=== PATIENT | female | born 1990 | race Asian ===

== ENCOUNTER 2016-03-15 15:06 | Outpatient (CLI) | payer OTHER, MEDICAID | END 2016-03-15 15:07 | disposition home or self-care (01) | LOC: NC 15:06 | PROVIDERS: ATTEND Advanced Practice Midwife | DX: Z71.3 Dietary counseling and surveillance (principal); O24.410 Gestational diabetes mellitus in pregnancy, diet controlled; O99.210 Obesity complicating pregnancy, unspecified trimester ==

== ENCOUNTER 2016-03-22 15:06 | Outpatient (CLI) | payer OTHER, MEDICAID | END 2016-03-22 15:07 | disposition home or self-care (01) | LOC: NC 15:06 | PROVIDERS: ATTEND Obstetrics & Gynecology | DX: O24.410 Gestational diabetes mellitus in pregnancy, diet controlled (principal); Z71.3 Dietary counseling and surveillance; O99.210 Obesity complicating pregnancy, unspecified trimester; Z68.31 Body mass index [BMI] 31.0-31.9, adult; Z3A.00 Weeks of gestation of pregnancy not specified ==

== ENCOUNTER 2016-04-18 06:27 | Inpatient (IN) | payer OTHER, MEDICAID ==
[2016-04-19] MEDS ORDERED: PUMP TUBING ONE (09:25)
[2016-04-19] MEDS ORDERED: LIDOCAINE Viscous 2% 15 ML UDCUP ONE (09:25)
[2016-04-19] MEDS ORDERED: OXYTOCIN 10 UNITS/ML VIAL ONE (09:25)
[2016-04-19] MEDS ORDERED: MINERAL OIL 25 ML BOT ONE (09:25)
[2016-04-19] MEDS ORDERED: LACTATED RINGERS 1,000 ML ONE (09:25)
[2016-04-19] MEDS ORDERED: LIDOCAINE 1% (PRES FREE) 30 ML VIAL ONE (09:25)
[2016-04-19] MEDS ORDERED: IV START KIT ONE (09:25)
[2016-04-19] MEDS ORDERED: OXYTOCIN IN LR 500 ML IV ONE (09:26)
[2016-04-19] MEDS: MISOPROSTOL 25 MCG TABLET VG SCH ×2 (10:17→14:29)
[2016-04-19 10:24] LABS: HEMATOCRIT 35.8 % (37.0-47.0); HEMOGLOBIN 11.7 gm/l (12.0-16.0); MEAN CELL VOLUME 86.1 fl (81.0-99.0); MEAN CORPUSCULAR HEMOGLOBIN 28.1 pg (27.0-31.0); MEAN CORPUSCULAR HGB CONC 32.7 g/dl (33.0-37.0); RED CELL DISTRIBUTION WIDTH 14.1 % (11.5-14.5)
--- NOTE | 2016-04-19 10:29 | PDOC36 ---
Provider Note Subject: First dose of cytotec Note: FH cat 1 EFW 7.5lbs US confirms vertex presentation VE cvx soft, 50%, closed int os, vtx -3 loosely applied. Misoprostol 25mcg placed intra vaginally, after obtaining pt's verbal consent.
[2016-04-19 10:58] LABS: ALB/GLOB RATIO 1.2 (>1.0); ALBUMIN 3.4 gm/dL (3.5-5.7)
[2016-04-19 11:04] VITALS: BMI 32.5
--- NOTE | 2016-04-19 14:42 | PDOC36 ---
Provider Note Subject: Second dose Note: Pt has felt crampy but no serious pain. No bleeding or ROM. Exam FH cat 1, uterine irritability and occ longer contrx Tone of uterus is increased compared to before. VE cervix softer, 50%, posterior, floppy, loose 1cm vertex loosely applied at -3 station. Membranes intact. Good response to first dose of misoprostol. Second dose placed without difficulty.
--- NOTE | 2016-04-19 15:01 | PCMAN ---
OB Admission Note - History : 2 Term: 1 : 0 Abortions (S&E): 0 Livin EDC:: 04/25/16 Gestational Age (weeks): 39 Days (#/7): 1 Admit Cervical Dilation:: closed Admit Cervical Effacement (%):: 50 Admit Station:: -3 Admit Presentaton:: cephalic Membrane Status: Intact Contractions: No Contraction Frequency:: mild uterine irritability Heart Rate:: 135 (category 1) Status:: Good EFW:: 7.5 - 8 lbs Summary of Course:: Pt initially followed by [facility]. She was diagnosed with GDM, inadequately controlled with diet alone. She was started on glyburide finally on 03/27/16, 5mg PO BID and has had fastings around 70-80. Most pprandials are OK but higher with poor food choices. With last pt was induced at [address] Wheat. She had a NVbirth of a boy weighing 8lb11, Jose. This baby is another boy named Torey. The plan is induction at 39 weeks because of inadequate blood sugar control. - Labs Blood Type: B (+) positive Rubella Status: Non-immune GBS Status: Negative Abnormal Labs: None - Review of Systems Pt has had an URI infx for several days. No bleeding, no ROM. No nausea/emesis/fever/chills/diarrhea. - Physical Exam Psych/Mental Status: Mood/Affect Appropriate Lungs: Clear to Auscultation Bilaterally Cardiovascular: Regular Rate and Rhythm Abdomen: Normal Bowel Sounds Genitourinary: Normal Female Genitalia Extremities: Full ROM Skin: Normal Color, Warm, Dry - Problems (1) Gestational diabetes mellitus (GDM) affecting second Status: Acute Code: O24.419Assessment/Plan: Pt is on glyburide 5mg BID. Post-prandials continue to be a bit high. - Additional Comments Plan is for induction of labor, starting with cervical ripening with misoprostol , off-label use, risks/complications explained to pt.
--- NOTE | 2016-04-19 18:58 | PDOC36 ---
Provider Note Subject: Progress Note Note: S: Pt feeling contrx low and in front. She is also getting hungry and tired. O: lots of uterine activity. FH cat 1 VE cvx soft, 70%, post, floppy, 2cm tight, not stretchy vertex -3 but firmly applied. Imp: Good response to 2nd misoprostol. Plan: Pt will have some dinner, walk, jacuzzi Then re-eval at about 9pm for [place] balloon or pitocin.
--- NOTE | 2016-04-19 22:19 | PDOC36 ---
Provider Note Subject: Progress note Note: Damon is still having freq regular contrx, felt mostly low and in front. Pt will want an epidural when she gets active. VE cervix soft, stretchier, 3cm, 80% at approx 9:30pm Vertex firmly applied -2 station. Imp: Pt progressing on her own after the 2 doses of miso. Plan: Expectant management. Re-eval at [place].
[2016-04-20] MEDS ORDERED: EPIDURAL PUMP SET ONE (02:28)
[2016-04-20] MEDS ORDERED: FENTANYL/ROPIVACAINE EPIDURAL 250 ML EP ONE (02:28)
[2016-04-20] MEDS: LACTATED RINGERS 1,000 ML IV SCH ×6 (03:06→19:48)
[2016-04-20] MEDS ORDERED: EPIDURAL PROCEDURE TRAY ONE (03:12)
[2016-04-20] MEDS: FENTANYL/ROPIVACAINE EPIDURAL 250 ML EP SCH ×2 (03:36→17:16)
[2016-04-20] MEDS ORDERED: SODIUM CHLORIDE 0.9% 500 ML IV PRN (03:50)
[2016-04-20] MEDS ORDERED: NALOXONE HCL 0.4 MG/ML VIAL IV PRN (03:50)
[2016-04-20] MEDS ORDERED: LACTATED RINGERS 500 ML IV PRN (03:50)
[2016-04-20] MEDS ORDERED: LACTATED RINGERS 1,000 ML IV SCH (03:50)
[2016-04-20] MEDS ORDERED: DIPHENHYDRAMINE HCL 50 MG/1 ML VIAL IV PRN (03:50)
[2016-04-20] MEDS ORDERED: NALBUPHINE HCL 20 MG/ML AMP IV PRN (03:50)
[2016-04-20] MEDS ORDERED: METOCLOPRAMIDE HCL 5 MG/ML 2ML VIAL IV PRN (03:50)
[2016-04-20] MEDS ORDERED: ONDANSETRON 4 MG/2ML 2 ML VIAL IV PRN (03:50)
[2016-04-20] MEDS ORDERED: EPHEDRINE SULFATE 50 MG/ML 1ML VIAL IV PRN (03:50)
[2016-04-20] MEDS ORDERED: OXYTOCIN IN LR 500 ML IV PRN (04:47)
--- NOTE | 2016-04-20 05:01 | PDOC36 ---
Provider Note Subject: Progress note Note: Pt's contractions were getting stronger and harder with activity. Epidural narcotics were started at approx 3:30am. Pt is now comfortable. She felt a gush of fluid. Exam: vertex is now -4 station not applied to the cervix cervix is floppy, 4cm, membranes not palpable Contractions q 4mins regular lasting 45-60sec FH low to moderate variability, no decels Pt was placed in a sitting position, but her BP dropped and she felt dizzy. She felt better in a reclining position and her BP came back up. Plan: Position change Pitocin augmentation
--- NOTE | 2016-04-20 06:48 | PDOC36 ---
Provider Note Note: ob note: patient admitted by dr villegas for induction of labor at 39 weeks. estimated weight 7-7 1/2 lbs. cervix 4/50%/vertex -3 with bulging membranes. arom discussed with patient, she is agreeable to proceedure. arom easily accomplished, clear amniotic fluid. contractions q 2-3 minutes. category 1 tracing. patient comfortable with epidural in place. herndon draining clear yellow urine.
--- NOTE | 2016-04-20 12:22 | PDOC36 ---
Provider Note Note: ob note: cervix 6/80%/vtx -1. category 2 tracing with late decelerations. pitocin was discontinued, internal monitor placed.
--- NOTE | 2016-04-20 12:31 | PDOC36 ---
Provider Note Note: ob note: category 1 tracing, regular uterine contractions every 4 minutes. will hold restarting pitocin at this time.
[2016-04-20] MEDS ORDERED: CEFAZOLIN SODIUM 2 GRAM DUPLEX 50 ML IV SCH (16:15)
[2016-04-20] MEDS ORDERED: ACETAMINOPHEN 325 MG TABLET PO ONE (16:20)
--- NOTE | 2016-04-20 16:38 | PDOC36 ---
Provider Note Note: ob note: cervix 7cm/80% vertex -1 station. temp 101 degrees, ancef 2grms ordered , tylenol 650mg ordered. tachycardia 160's-180's before ancef and tylenol ordered. uterine fundus nontender. uterine contractions every 2 minutes without pitocin. category II tracing. discussed tachycardia with patient and partner. patient and partners have coughs and cold, however, no fever present at onset of induction. will monitor tachycardia and/or temperature, response to tylenol administration.
[2016-04-20] MEDS ORDERED: ROPIVACAINE 0.5% 30 ML VIAL ONE (18:13)
--- NOTE | 2016-04-20 18:21 | PDOC36 ---
Provider Note Note: ob note: variable decelerations, now resolved. cervix anterior lip, then 10cm after slipping cervix behind vertex/100/-1 station. no urge to push yet.
--- NOTE | 2016-04-20 19:21 | PDOC36 ---
Provider Note Note: ob note: cervix fully dilated/100%/vtx +1 station. has the urge to push. category 2 tracing, variable decelerations.
[2016-04-20] MEDS ORDERED: OXYTOCIN IN LR 500 ML IV ONE (20:33)
[2016-04-20] MEDS ORDERED: METHYLERGONOVINE MALEATE 0.2 MG/ML 1ML AMP ONE (20:42)
--- NOTE | 2016-04-20 21:00 | PCMDEL ---
Delivery Note - Labor 1st stage (hr/min):: 13 hrs 42 min 2nd stage (hr/min):: 2 hrs 21 min 3rd stage (hr/min):: 8 min Total (hr/min):: 16 hrs 11 min Pushed (hr/min):: 50 min - Delivery Delivery (Date): 04/20/16 Delivery (Time): 20:49 Infant Gender: Male Presentation: Cephalic Position: OA Umbilical Cord: 3 Vessel, Nuchal Cord Delayed Cord Clamping:: 2-3 min 1 Minute Total: 9 5 Minute Total: 9 Placenta:: intact EBL:: 400cc Perineum:: intact Suture:: 3-0 chromic Anesthesia/Meds:: epidural Length ROM:: 13 hrs 52 min Comments:: delivery note: patient pushed effectively with easy delivery of vertex melanie to oa position with easy delivery of shoulders and body, loose nuchal cord x2 reduced after delivery of head. baby cried spontaneously, then placed on mother' s abdomen. delayed cord clamping x 3 minutes, father of baby cut cord. placenta delivered intact. superficial laceration at apex of vagina repaired with one suture of 3-0 chromic material. rectal negative, cervix intact, sphincter intact. expressed 4cm blood clot from cervix, then bleeding subsided. patient tolerated procedure well. sponge, instrument, and needle count correct.
[2016-04-20] MEDS ORDERED: LANOLIN 50 APPLIC/7G TUBE TP PRN (21:02)
[2016-04-20] MEDS ORDERED: SENNOSIDES 8.6 MG TABLET PO PRN (21:02)
[2016-04-20] MEDS ORDERED: BENZOCAINE/MENTHOL 60 APPLIC/BOT TP PRN (21:02)
[2016-04-20] MEDS ORDERED: OXYCODONE/ACETAMINOPHEN 5/325 MG TABLET PO PRN (21:02)
[2016-04-20] MEDS ORDERED: OXYTOCIN 10 UNITS/ML VIAL IM ONE (21:07)
[2016-04-21 06:54] LABS: HEMATOCRIT 31.6 % (37.0-47.0); HEMOGLOBIN 10.3 gm/l (12.0-16.0)
--- NOTE | 2016-04-21 09:18 | PDOC44 ---
- Subjective Day: 1 Patient doing well. C/O lingering cough and URI symptoms. . Moderate lochia. Still desires tubal sterilization. Reports Flatus, Reports Pain Tolerable, Reports , Reports Lochia Moderate, Reports Tolerating Regular Diet - Objective Temp Pulse Resp BP Pulse Ox 98.4 F 114 16 106/55 04/21/16 00:20 04/21/16 00:20 04/21/16 00:20 04/21/16 00:20 Lab Results 04/21/16 06:10 Hgb 10.3 L Hct 31.6 L 04/20/16 09:48 POC Capillary Glucose 148 H Current Medications Generic Name Dose Route Start Last Admin Trade Name Freq PRN Reason Stop Dose Admin Benzocaine/Menthol 1 applic 04/20/16 21:02 Dermoplast TP PRN PRN Patient Comfort Emollient Ointment 1 applic 04/20/16 21:02 [id number] TP PRN PRN sore nipples Ropivacaine/Fentanyl/NS 250 mls @ 0 mls/hr 04/20/16 03:36 04/20/16 17:16 Fentanyl 2 Mcg/Ml + Ropivacaine 0.125% Ep Bag EP 15 mls/hr EPI RAFIQ Administration Protocol Per Protocol Ibuprofen 800 mg 04/20/16 21:02 Motrin PO Q8H PRN Pain (Mild) Oxycodone/Acetaminophen 1 - 2 tab 04/20/16 21:02 Percocet 5/325 PO Q4H PRN Pain (Moderate) Senna 17.2 mg 04/20/16 21:02 Senokot PO BEDTIME PRN Comfort Sodium Chloride 10 ml 04/20/16 21:02 Normal Saline 10ml Flush IV PRN PRN IV Flush - Physical Exam General: Afebrile Psych/Mental Status: Mood/Affect Appropriate, Judgment/Insight Intact, Bonding Well Neurological: Grossly Intact, Alert, Oriented x 4, Normal Speech HEENT: Atraumatic, PERRLA, EOMI Lungs: Clear to Auscultation Bilaterally, Normal Air Movement Cardiovascular: Regular Rate and Rhythm, Normal S1, Normal S2 Breast: Soft, Skin intact Fundus: Firm, Midline, At Umbilicus Abdomen: Normal Bowel Sounds Lochia: Moderate Rectal Exam: Deferred Extremities: Full ROM Skin: Normal Color, Warm, Dry, Intact - Problems:Assessment/Plan (1) (spontaneous vaginal delivery) Status: AcuteAssessment/Plan: Continue routine care. Will defer PPBTL until tomorrow if URI improved or 6 wks . Disposition: Stable, Anticipate DC Home Tomorrow
[2016-04-21] MEDS: IBUPROFEN 800 MG TABLET PO PRN ×2 (13:53→21:48)
[2016-04-21] MEDS: FENTANYL/ROPIVACAINE EPIDURAL 250 ML EP SCH (16:12)
[2016-04-22] MEDS ORDERED: LACTATED RINGERS 1,000 ML ONE (01:13)
--- NOTE | 2016-04-22 11:00 | PDOC39B ---
Hospital Course: ADMIT DATE: 04/19/16 DISCHARGE DATE: 04/22/16 ADMISSION DIAGNOSES: intrauterine at 39.5 weeks, upper respiratory infection, gestational diabetes PROCEDURES: induction of labor, spontaneous vaginal delivery, repair of superficial vaginal laceration HISTORY OF PRESENT ILLNESS: 26 year old G2 T1 L1 at 39 weeks 5 days presenting for induction of labor with history of gestational diabetes, history of upper respiratory infection. HOSPITAL COURSE: The patient had an unevenful post course, upper respiratory infection resolved, but patient wanted to defer post tubal until after her 6 week check up. has her own analgesics at home, not requesting any pain medication. By day of discharge the patient is ambulating, eating, voiding, and passing flatus without difficulty. Pain is controlled and lochia is appropriate. She is - Physical Exam Vital Signs: Temp Pulse Resp BP Pulse Ox 97.6 F 86 14 120/77 04/22/16 08:32 04/22/16 08:32 04/22/16 08:32 04/22/16 08:32 General: Afebrile, No Acute Distress Psych/Mental Status: Mood/Affect Appropriate, Judgment/Insight Intact, Bonding Well Breast: Soft, Skin intact, Nipples Intact, No Tenderness, No Erythema, No Engorged Fundus: Firm, Midline, Below Umbilicus, Other (nontender) Genitourinary: Other (voiding without difficulty) Lochia: Light Extremities: No Tenderness - Discharge Diagnosis (1) Anemia Qualifiers: Iron deficiency anemia type: unspecified iron deficiency Status: Acute (2) Upper respiratory infection Status: Acute (3) Obstetric vaginal laceration Status: Acute - Discharge Plan Condition: Stable Disposition: Home Instruction Forms: Vaginal Discharge Instructions Additional Instructions: office visit 2 weeks for 2hr pp glucose, nothing in vagina x 6 weeks, office visit [address] markham, take iron supplementation as prescribed ( patient has rx at home), patient declined analgesics. Follow-Up: Mya Clay CNM [Certified Nurse Infection Control Practitioner] - As scheduled (May 04, 2016 3p - [place] office)
[2016-04-22 14:56] VITALS: BP 104/71
== END 2016-04-22 17:41 | disposition home or self-care (01) | DRG 775 ==
LOC: EDSTATUS 06:27 → FBC 04-19 07:12
PROVIDERS: ADMIT Obstetrics & Gynecology; ATTEND Obstetrics & Gynecology
PROC: 3E0P7GC Introduction of Other Therapeutic Substance into Female Reproductive, Via Natural or Artificial Opening (ICD-10-PCS; 2016-04-19)
PROC: 10E0XZZ Delivery of Products of Conception, External Approach (ICD-10-PCS; principal; 2016-04-20)
PROC: 0UQG0ZZ Repair Vagina, Open Approach (ICD-10-PCS; 2016-04-20)
PROC: 00HU33Z Insertion of Infusion Device into Spinal Canal, Percutaneous Approach (ICD-10-PCS; 2016-04-20)
PROC: 10907ZC Drainage of Amniotic Fluid, Therapeutic from Products of Conception, Via Natural or Artificial Opening (ICD-10-PCS; 2016-04-20)
PROC: 10H07YZ Insertion of Other Device into Products of Conception, Via Natural or Artificial Opening (ICD-10-PCS; 2016-04-20)
DX: O24.425 Gestational diabetes mellitus in childbirth, controlled by oral hypoglycemic drugs (principal); O71.89 Other specified obstetric trauma; Z3A.39 39 weeks gestation of pregnancy; Z37.0 Single live birth; O99.89 Other specified diseases and conditions complicating pregnancy, childbirth and the puerperium; O76 Abnormality in fetal heart rate and rhythm complicating labor and delivery; O69.81X0 Labor and delivery complicated by cord around neck, without compression, not applicable or unspecified; O99.52 Diseases of the respiratory system complicating childbirth; J06.9 Acute upper respiratory infection, unspecified; O90.81 Anemia of the puerperium; D50.9 Iron deficiency anemia, unspecified